=== PATIENT | female | born 2000 | race Caucasian/White ===

== ENCOUNTER 2019-12-09 00:48 | Emergency (ER) | payer OTHER ==
[~2019-12-09] VITALS: Ht 160 cm; Wt 54.4 kg
[2019-12-09 01:04] VITALS: Ht 160 cm; Wt 54.4 kg
[2019-12-09 01:49] VITALS: BP 98/63
== END 2019-12-09 01:49 | disposition home or self-care (01) ==
LOC: ED 00:48
DX: J06.9 Acute upper respiratory infection, unspecified (principal)